=== PATIENT | female | born 1960 | race Caucasian/White ===

== ENCOUNTER 2017-08-02 09:24 | Day surgery (SDC) | payer OTHER ==
[2017-07-30 17:54] VITALS: BMI 29.3
[2017-08-02] MEDS ORDERED: PROPOFOL 20 ML ONE ×2 (09:53)
[2017-08-02] MEDS ORDERED: LIDOCAINE HCL/PF 2% SDV 5ML VIAL ONE (11:42)
[2017-08-02 13:28] VITALS: TEMP 98.1
[2017-08-02 14:19] VITALS: BP 112/71; PULSE 65
--- NOTE | 2017-08-03 10:11 | PATH ---
Surgical Pathology Report Patient Name: [facility] PAT[facility]. Rec. #: [id number] /Age/Gender: 1960 (Age: 56) / F Account: [id number] Location: Taken: 08/02/2017 Received: 08/02/2017 Reported: 08/03/2017 Physicians: Harsha Mathis M.D. Specimen(s) Received BX PROXIMAL LEFT COLON Clinical History Preoperative diagnosis: Rule out colon cancer Postoperative diagnosis: Polyp Final Diagnosis COLON, PROXIMAL LEFT, BIOPSY: TUBULOVILLOUS ADENOMA. Electronically Signed Yordy Oreilly M.D. Gross Description Received in formalin, labeled "proximal left colon" are 2 perez, polypoid portions of soft tissue averaging 0.6 cm. in greatest dimension. The specimens are submitted in toto in one cassette. 08/02/201708/02/2017
== END 2017-08-02 12:30 | disposition home or self-care (01) ==
LOC: FASU-ENDO 09:24
PROVIDERS: ATTEND Internal Medicine Gastroenterology
PROC: 0DBM8ZX Excision of Descending Colon, Via Natural or Artificial Opening Endoscopic, Diagnostic (ICD-10-PCS; principal; 2017-08-02 10:32)
PROC: 3E0H8GC Introduction of Other Therapeutic Substance into Lower GI, Via Natural or Artificial Opening Endoscopic (ICD-10-PCS; 2017-08-02 10:32)
DX: Z12.11 Encounter for screening for malignant neoplasm of colon (principal); D12.4 Benign neoplasm of descending colon; E78.00 Pure hypercholesterolemia, unspecified
CPT/HCPCS: 84703; 88305-TC

== ENCOUNTER 2022-04-06 10:30 | Day surgery (SDC) | payer OTHER ==
[2022-04-03 18:45] VITALS: BMI 29.0
[2022-04-06 13:58] VITALS: RESP 16; TEMP 97.9
[2022-04-06 13:59] VITALS: BP 112/74; PULSE 68
== END 2022-04-06 13:10 | disposition home or self-care (01) ==
LOC: FASU-ENDO 10:30
PROVIDERS: ATTEND Internal Medicine Gastroenterology
PROC: 0DBL8ZX Excision of Transverse Colon, Via Natural or Artificial Opening Endoscopic, Diagnostic (ICD-10-PCS; 2022-04-06)
PROC: 0DBP8ZX Excision of Rectum, Via Natural or Artificial Opening Endoscopic, Diagnostic (ICD-10-PCS; 2022-04-06)
PROC: 0DBH8ZX Excision of Cecum, Via Natural or Artificial Opening Endoscopic, Diagnostic (ICD-10-PCS; principal; 2022-04-06 11:49)
DX: Z12.11 Encounter for screening for malignant neoplasm of colon (principal); K63.5 Polyp of colon; K62.1 Rectal polyp; Z86.010 Personal history of colon polyps
CPT/HCPCS: 88305-TC